=== PATIENT | male | born 1940 | race Two or more races ===

== ENCOUNTER 2018-10-07 05:52 | Emergency (ER) | payer MEDICAID ==
[~2018-10-07] VITALS: Ht 177.8 cm; Wt 97.5 kg
[2018-10-07 06:05] VITALS: BP 129/70
--- NOTE | 2018-10-07 06:11 | NUR ---
AT THE BED SIDE
[2018-10-07] MEDS ORDERED: IBUPROFEN 600 MG TABLET PO ONE ×2 (06:22→06:30)
--- NOTE | 2018-10-07 06:23 | NUR ---
Patient discharged to home in stable condition. Rx and Written and verbal after care instructions given. Patient verbalizes understanding of instruction.
== END 2018-10-07 06:25 | disposition home or self-care (01) ==
LOC: ER 05:52
DX: N61.0 Mastitis without abscess (principal)

== ENCOUNTER 2019-08-07 10:15 | Inpatient (IN) | payer MEDICAID ==
[~2019-08-07] VITALS: Ht 177.8 cm; Wt 98.4 kg
[2019-08-07 10:54] LABS: BASOPHILS # (AUTO) 0.1 /CMM (0.0-0.2); BASOPHILS % (AUTO) 0.6 % (0.0-2.0); EOSINOPHILS % (AUTO) 0.5 % (0.0-6.0); HEMATOCRIT 42 % (39-51); HEMOGLOBIN 13.7 g/dL (13.5-17.5); LYMPHOCYTES # (AUTO) 1.2 /CMM (0.8-4.8); LYMPHOCYTES % (AUTO) 11.3 % (20.0-44.0); MEAN CORPUSCULAR HGB CONC 32 g/dl (31.0-36.0); MEAN CORPUSCULAR VOLUME 92 fL (80-96); MONOCYTES # (AUTO) 0.8 /CMM (0.1-1.30); MONOCYTES % (AUTO) 7.5 % (2.0-12.0); NEUTROPHILS # (AUTO) 8.2 /CMM (1.8-8.9); NEUTROPHILS % (AUTO) 80.1 % (43.0-81.0); PLATELET COUNT (AUTO) 241 /CMM (150-450); RED BLOOD CELL COUNT(AUTO) 4.59 MIL/uL (4.5-6.0); WHITE BLOOD COUNT (AUTO) 10.2 K/uL (4.3-11.0)
[2019-08-07 10:56] LABS: CALCIUM, SERUM 8.1 mg/dL (8.5-10.1); CARBON DIOXIDE 26 mmol/L (21-32); CHLORIDE 96 mmol/L (98-107); CREATININE 0.9 mg/dL (0.6-1.3); GLUCOSE 184 mg/dL (74-106); POTASSIUM 4.5 mmol/L (3.5-5.1); SODIUM SERUM 130 mmol/L (136-145); UREA NITROGEN, BLOOD 16 mg/dL (7-18)
--- NOTE | 2019-08-07 11:02 | NUR ---
BIB C/O SOB FACIAL SWELLING THAT STARTED YESTERDAY. PT AAOX4, PLACED ON FINANCE EFFECTIVENESS MANAGER, ST. O2 SAT ON RA 56%, PLACED ON HI SAYRA OXYGEN, NON REBREATHER, O2 SAT 95%. PT SEEN & EVAL'D BY DR. BERMAN & RT. PT STS FEELING A LOT BETTER & WILL CONT TO MONITOR.
[2019-08-07 11:08] LABS: ALANINE AMINOTRANSFERASE 24 U/L (12-78); ALBUMIN 3.3 g/dL (3.4-5.0); ALKALINE PHOSPHATASE 97 U/L (46-116); ASPARTATE AMINOTRANSFERASE 16 U/L (15-37); B-TYPE NATRIURETIC PEPTIDE 2566 PG/ML (0-125); BILIRUBIN,TOTAL 0.7 mg/dL (0.2-1.0); TOTAL PROTEIN, SERUM 7.5 g/dL (6.4-8.2)
[2019-08-07] MEDS ORDERED: AMLO5TAB9 PO (11:21)
[2019-08-07] MEDS ORDERED: GABA-532 PO (11:21)
[2019-08-07] MEDS ORDERED: CHOL10002 PO (11:21)
[2019-08-07] MEDS ORDERED: TIOT18CA3 PO (11:21)
[2019-08-07] MEDS ORDERED: METF-441 PO (11:21)
[2019-08-07] MEDS ORDERED: GLIP5TAB13 PO (11:21)
[2019-08-07 11:22] LABS: CREATINE KINASE, TOTAL 99 U/L (39-308); D-DIMER 0.38 mg/L(FEU (0.17-0.50); FERRITIN 89 ng/mL (8-388)
[2019-08-07 11:23] LABS: C-REACTIVE PROTEIN 6.8 mg/dL (0.0-0.9)
--- NOTE | 2019-08-07 12:40 | NUR ---
CALLED [facility], PAGED FLEI ANDERSON DNP
--- NOTE | 2019-08-07 12:46 | NUR ---
URINE SAMPLE COLLECTED AND SENT TO LAB.
[2019-08-07 12:57] LABS: APPEARANCE,URINE Clear (CLEAR); BILIRUBIN,URINE SMALL (NEGATIVE); BLOOD, URINE Moderate Ery/uL (NEGATIVE); COLOR,URINE Yellow (YELLOW); KETONES,URINE Negative (NEGATIVE); LEUKOCYTE ESTERASE ,URINE Negative (NEGATIVE); NITRITE, URINE Negative (NEGATIVE); PH,URINE 5.5 (5.0-8.0); PROTEIN,URINE >=300 mg/dl (NEGATIVE); UGLUCOSE Negative (NEGATIVE)
[2019-08-07 12:59] LABS: BACTERIA,URINE Few /HPF (None Seen); SQUAMOUS EPITHELIAL CELL,UR Few /HPF (None Seen); WBC,URINE 0-2 /HPF (0-3)
[2019-08-07] MEDS ORDERED: FUROSEMIDE 40 MG/4 ML VIAL IV ONE (13:00)
--- NOTE | 2019-08-07 13:09 | NUR ---
REPORT GIVEN TO MARJORIE LA OF TELE UNIT
[2019-08-07] MEDS ORDERED: FUROSEMIDE 40 MG/4 ML VIAL ONE (13:11)
--- NOTE | 2019-08-07 13:22 | NUR ---
BUSINESS EDUCATION PROFESSOR JUSTIN AT BEDSIDE
[2019-08-07] MEDS ORDERED: ONDANSETRON HCL/PF 4 MG/2 ML VIAL IVP PRN (13:30)
[2019-08-07] MEDS ORDERED: ZOLPIDEM TARTRATE 5 MG TABLET PO PRN (13:30)
[2019-08-07] MEDS ORDERED: HYDROCODONE/APAP 5/325MG 1 EACH TABLET PO PRN (13:30)
[2019-08-07] MEDS ORDERED: Z GUARD REMEDY 2 OZ OINT TP PRN (13:30)
[2019-08-07] MEDS ORDERED: DEXTROSE 50%-WATER 50 ML DISP.SYRIN IV PRN (13:30)
[2019-08-07] MEDS ORDERED: ENOXAPARIN SODIUM 40 MG/0.4 ML DISP.SYRIN SQ SCH (13:30)
--- NOTE | 2019-08-07 13:40 | NUR ---
ADMISSION/ GASTON NOTES RECEIVED PT VIA JACKLYN. A/OX4, RESPONSIVE TO ALL STIMULI, ABLE TO MAKE NEEDS KNOWN, HUNGARIAN AND ICELANDIC SPEAKING. ON CONTACT/DROPLET ISOLATION DUE TO R/O COVID19, RESULT PENDING. RESPIRATION EVEN AND NON LABORED WITH NO ACUTE RESPIRATORY DISTRESS, ON O2 AT 5LPM VIA N/C SATING 93%, HOB ELEVATED. ABDOMEN SOFT AND NON DISTENDED WITH ACTIVE BOWEL SOUNDS, CONTINENT, URINAL PROVIDED ON BEDSIDE. PT DENIES PAIN AND DISCOMFORT. SKIN WARM TO TOUCH AND DRY, SKIN INTACT WITH BLE DISCOLORATION AND BILATERAL TOE AMPUTATION, PT REFUSED TO BE CHECKED ON PERINEAL AREA STATED "I HAVE NO WOUNDS", RESPECTED PT AUTONOMY AND INFORM TO LET RN KNOW IF WANTED TO BE CHECKED LATER ON, PT VERBALIZED UNDERSTANDING. ON TELE MONITOR SHOWS CONTROLLED AFIB 84. IV SITE AT RIGHT AC #18, PATENT IN FLUSHING, NO S/SX OF INFILTRATION. MED RECON DONE BY . ON CARDIAC DIET. CALL LIGHT WITHIN REACHED. ALL CONCERNS ATTENDED, BED IN LOW LOCKED POSITION, SRX2 FOR SAFETY. WILL CONTINUE TO MONITOR PATIENT CARE
--- NOTE | 2019-08-07 13:45 | NUR ---
GASTON NOTES PT HAS PRESENCE OF +1 PITTING EDEMA ON BLE. NON PITTING ON BUE. WILL CONTINUE TO MONITOR
--- NOTE | 2019-08-07 13:47 | NUR ---
TRANSFERRED TO TELE UNIT VIA [facility]
[2019-08-07] MEDS: IPRATROPIUM BROMIDE 14 GM INHALER (or 12.9 GM) IH SCH ×2 (15:10→17:06)
[2019-08-07 16:00] VITALS: BP 166/82
[2019-08-07 16:19] VITALS: BP 166/82
[2019-08-07] MEDS: BLOOD SUGAR DIAGNOSTIC 1 EACH STRIP VI SCH ×2 (17:11→21:24)
[2019-08-07] MEDS: *INSULIN REGULAR(HUMULIN R)HUM 100 UNIT/ML VIAL SQ PRN ×2 (17:13→21:31)
--- NOTE | 2019-08-07 17:28 | NUR ---
WORKERS' COMPENSATION HEARINGS OFFICER NOTES MARIN () CAME, BROUGHT PATIENT'S FAMILY SERVICE WORKER, PUZZLE WORKBOOK, PENCIL AND COMB. EXPLAINED TO PT THAT THERE IS A POSSIBILITY FOR TRANSFER OF ROOM AND RISK FOR LOSS VALUABLES. PT IS ALERT OX4 AND STATED HE WILL KEEP AN EYE ON IT, HE NEEDS THE CELLPHONE TO CONTACT THE FAMILY MEMBER. PT VERBALIZED UNDERSTANDING. ADD ON VALUABLES INPUTTED IN INVENTORY.
--- NOTE | 2019-08-07 18:38 | NUR ---
GASTON RN CLOSING NOTES PT A/OX4. RESPIRATION EVEN AND UNLABORED, NOT IN ACUTE RESPIRATORY DISTRESS, O2 AT 5-7 LPM VIA N/C SATING 92-95%, HOB ELEVATED. PRESENCE OF BUE NON PITTING EDEMA AND BLE +1 PITTING EDEMA. ABD SOFT AND NON DISTENDED,NO BM, URINAL 600 CC WITH YELLOW COLOR. SKIN WARM TO TOUCH AND DRY. DENIES PAIN AND DISCOMFORT. IV SITE AT RIGHT AC #18 H/L PATENT IN FLUSHING, SITE HAS NO S/SX OF INFILTRATION. TELE MONITOR SHOWS CONTROLLED AFIB 93. ON CONTACT/DROPLET ISOLATION DUE TO R/O COVID19. BED IN LOCKED POSITION, SR X2 UP FOR SAFETY. ALL CONCERNS ATTENDED. CALL LIGHT WITHIN REACHED. ENDORSED PT CARE TO NEXT SHIFT.
--- NOTE | 2019-08-07 19:30 | NUR ---
GASTON RN NOTES RECEIVED PATIENT IN BED ALERT AOX4, BREATHING NORMAL NO SOB NOTED.RESPIRATION EVEN NON LABORED. CONTINUES ON O2 7L/MIN VIA NC SATURATING. HOB ELEVATED. TELE MONITOR READING CONTROLLED AFIB- 76'S TO 80. IV SITE RAC G# 18 INTACT PATENT FLUSHING WELL. CONTINUES ON CONTACT/DROPLET ISOLATION DUE TO R/O COVID19. SAFETY MEASURES IN PLACE, BED IN LOW AND LOCKED POSITION. SIDE RAILS UP X2. CALL LIGHT WITHIN REACH. WILL CONT TO MONITOR.
[2019-08-07 20:00] VITALS: BP 148/78
[2019-08-08] VITALS (7 sets, daily range): BP systolic 143–158; BP diastolic 77–87
[2019-08-08] MEDS: IPRATROPIUM BROMIDE 14 GM INHALER (or 12.9 GM) IH SCH ×2 (01:03→05:01)
[2019-08-08 06:18] LABS: BASOPHILS % (AUTO) 0.4 % (0.0-2.0); EOSINOPHILS % (AUTO) 0.8 % (0.0-6.0); HEMATOCRIT 40 % (39-51); HEMOGLOBIN 12.9 g/dL (13.5-17.5); LYMPHOCYTES # (AUTO) 1.1 /CMM (0.8-4.8); LYMPHOCYTES % (AUTO) 12.9 % (20.0-44.0); MEAN CORPUSCULAR HGB CONC 32 g/dl (31.0-36.0); MEAN CORPUSCULAR VOLUME 92 fL (80-96); MONOCYTES # (AUTO) 0.8 /CMM (0.1-1.30); MONOCYTES % (AUTO) 10.1 % (2.0-12.0); NEUTROPHILS # (AUTO) 6.3 /CMM (1.8-8.9); NEUTROPHILS % (AUTO) 75.8 % (43.0-81.0); PLATELET COUNT (AUTO) 241 /CMM (150-450); RED BLOOD CELL COUNT(AUTO) 4.36 MIL/uL (4.5-6.0); WHITE BLOOD COUNT (AUTO) 8.3 K/uL (4.3-11.0)
[2019-08-08 06:31] LABS: THYROID STIMULATING HORMONE 1.19 uIU/mL (0.358-3.74)
[2019-08-08 06:36] LABS: ALBUMIN 3.1 g/dL (3.4-5.0); BILIRUBIN,TOTAL 0.5 mg/dL (0.2-1.0); CREATININE 0.9 mg/dL (0.6-1.3); MAGNESIUM 1.9 mg/dL (1.8-2.4); PHOSPHORUS 3.6 mg/dL (2.5-4.9); POTASSIUM 4.6 mmol/L (3.5-5.1); TOTAL PROTEIN, SERUM 7.2 g/dL (6.4-8.2)
--- NOTE | 2019-08-08 06:39 | NUR ---
GASTON RN NOTES PATIENT RESTED WELL NO S/S OF ACUTE DISTRESS NOTED. DENIES ANY PAIN OR DISCOMFORT. HOB ELEVATED. TELE MONITOR READING CONTROLLED A-FIB 95. ON OXYGEN SATURATING BETWEEN 95-97%. ABD SOFT AND NON DISTENDED. IV SITES INTACT PATENT FLUSHING WELL. ISOLATION PRECAUTIONS MAINTAINED. SAFETY MEASURES IN PLACE, BED IN LOW AND LOCKED POSITION. SIDE RAILS UP X2. CALL LIGHT WITHIN REACH. WILL ENDORSE TO AM NURSE FOR DIONNE.
--- NOTE | 2019-08-08 07:00 | NUR ---
GASTON RN NOTES RECEIVED PATIENT ON BED ALERT AOX4, ON 6L O2 N/C , ON TELE A.FIB HR IN 80'S , NO DISTRESS NOTED, IV SITE R AC G# 18 INTACT PATENT FLUSHING WELL. CONTINUES ON CONTACT/DROPLET ISOLATION DUE TO R/O COVID19. SAFETY MEASURES IN PLACE, BED IN LOW AND LOCKED POSITION. SIDE RAILS UP X3. CALL LIGHT WITHIN EASY REACH. WILL CONT TO MONITOR.
[2019-08-08] MEDS: BLOOD SUGAR DIAGNOSTIC 1 EACH STRIP VI SCH ×4 (08:22→21:29)
[2019-08-08] MEDS: *INSULIN REGULAR(HUMULIN R)HUM 100 UNIT/ML VIAL SQ PRN ×2 (08:22→21:31)
[2019-08-08] MEDS: AMLODIPINE BESYLATE 5 MG TABLET PO SCH (08:25)
[2019-08-08] MEDS: ENOXAPARIN SODIUM 40 MG/0.4 ML DISP.SYRIN SQ SCH (08:26)
[2019-08-08 08:57] LABS: ABG BASE EXCESS -0.8 mmol/L; ABG OXYGEN SATURATION 91.4 % (92.0-98.5); ABG PCO2 67.2 mmHg (35.0-45.0); ABG PO2 68.9 mmHg (75.0-100.0); COHb 1.4 % (0.5-1.5); O2Hb 90.1 % (94.0-97.0); VENT MODE, BG NC 5L
[2019-08-08] MEDS: FUROSEMIDE 40 MG/4 ML VIAL IV SCH ×4 (09:10→16:25)
[2019-08-08 09:30] LABS: IRON, SERUM 26 ug/dl (50-175); TOTAL IRON BINDING CAPACITY 305 ug/dl (250-450)
[2019-08-08 09:43] LABS: FERRITIN 94 ng/mL (8-388)
[2019-08-08] MEDS ORDERED: methylPREDNISolone SOD SUCC 125 MG/2ML VIAL IV ONE (10:00)
[2019-08-08] MEDS ORDERED: IPRATROPIUM/ALBUTEROL INHALER IH SCH (12:00)
[2019-08-08 12:26] LABS: OSMOLALITY,URINE 394 mOS/kg (340-1090)
[2019-08-08 12:27] LABS: URINE SODIUM, RANDOM 60 mmol/l (40-220)
[2019-08-08] MEDS: INSULIN REGULAR, HUMAN 100 UNIT/ML 3 ML VIAL SQ PRN ×2 (12:59→17:41)
--- NOTE | 2019-08-08 13:00 | NUR ---
RN NOTES DAILY LASIX HELD PER DR TOVAR ORDER .
--- NOTE | 2019-08-08 13:39 | NUR ---
RN NOTES DR CHEEMA NOTIFED REGARDING ABG RESULTS , PT IS A/Ox4, NO SIGNIFICANT CHANGES NOTED , ABG ORDERED FOR [address] CHEEMA ORDER, CONTINUE TO MONITOR
[2019-08-08 15:48] LABS: ABG OXYGEN SATURATION 95.7 % (92.0-98.5); ABG PCO2 59.5 mmHg (35.0-45.0); ABG PH 7.302 (7.350-7.450); ABG PO2 81.6 mmHg (75.0-100.0); AaDO2 135.2 mmHg; COHb 1.6 % (0.5-1.5); MetHb 0.2 % (0.0-1.5); SITE, ABG Right Radial; VENT MODE, BG NC 5 L
--- NOTE | 2019-08-08 16:00 | NUR ---
RN NOTES DR CHEEMA NOTIFIED REGARDING ABG RESULS , PT STATED FEELS BETTER , PT IS A/Ox4, CONTINUE TO MONITOR , ABG IN AM PER DR CHEEMA ORDER .
--- NOTE | 2019-08-08 18:21 | NUR ---
RN NOTES PT EATING DINNER , ON 6 L O2 , O2 SAT WNL , STATED FEELS BETTER , SR UP x3, CALL LIGHT WITHIN EASY REACH, BED LOCKED AND IN LOWEST POSITION, WILL ENDORSE TO SALES SERVICE TECHNICIAN NURSE FOR CONTINUITY OF CARE.
[2019-08-08] MEDS: IPRATROPIUM/ALBUTEROL INHALER IH SCH (20:13)
[2019-08-08] MEDS ORDERED: NITROGLYCERIN 0.4 MG/TAB BOTTLE SL PRN (22:00)
--- NOTE | 2019-08-08 22:00 | NUR ---
patient complaining of chest pain on a scale of 8 peeling pressure. contacted pest control supervisor Andonian. ORDERS RECEIVED FOR STAT TROPONIN BLOOD DRAW AND NITRO SL 0.4MG. WILL CONTINUE TO MONITOR.
--- NOTE | 2019-08-08 23:04 | NUR ---
TELE/RN OPENING RECEIVED PATIENT A/OX4 BERMUDIAN SPEAKER WITH CZECH UNDERSTANDING. PATIENT SHOWS NO SIGN OF ANY DISTRESS OR ANY SOB. ON 6L OD 02 ON NASAL CANNULA SATURATING AT 92%. UNLABORED BREATHING EVEN CHEST RISE. IV ACCESS RAC #18 PATENT AND FLUSH ON S/L. EXTREMITIES UPPER AND LOWER WITH MILD TO NO WEAKNESS. URINAL AT BEDSIDE. PLACED COMMODE AT BEDSIDE WITH BED ALARM ON. PATIENT COMFORTABLY IN BED. ALL SAFETY PRECAUTIONS APPLIED. WILL CONTINUE TO MONITOR PATIENT THROUGHOUT SHIFT.
[2019-08-09] VITALS (7 sets, daily range): BP systolic 138–157; BP diastolic 70–106
--- NOTE | 2019-08-09 | NUR ---
PAGED HELMINTHOLOGIST HOSPITALIST DR. ANN REGARDING NEGATIVE COVID SWAB RESULT, ALSO MADE AWARE PER PROTOCOL WE NEED TO TRANSFER PATIENTS TO CLEAN/DIFFERENT UNIT, ORDERED TO HOLD TRANSFERS UNTIL TOMORROW MORNING. ROBOTIC TECHNICIAN MADE AWARE. WILL ATTEND TO ORDERS.
[2019-08-09] MEDS: IPRATROPIUM/ALBUTEROL INHALER IH SCH ×2 (01:44→08:41)
--- NOTE | 2019-08-09 06:48 | NUR ---
TD/CLOSING PATIENT IN BED WITH NO SIGN OF ANY DISTRESS. NO COMPLAINTS ON ANY SOB. TITRATED PATIENTS O2 FROM 6L TO 4L SATURATING AT 96% ON NC. PATIENT ON MONITOR SHOWING CONTROLLED AFIB WITH HR AT 85. IV ACCESS PATENT AND NO SIGN OF INFILTRATION. URINAL AND COMMODE AT BEDSIDE. ADVISED PATIENT TO NOTIFY RN OR BEAUTY SALES ADVISOR IF NEEDING TO USE COMMODE. PATIENT DID NOT WANT BED LINENS CHANGED. ALL SAFETY PRECAUTIONS APPLIED. WILL ENDORSE TO MORNING SHIFT NURSE FOR DIONNE.
[2019-08-09 06:54] LABS: BASOPHILS % (AUTO) 0.1 % (0.0-2.0); HEMATOCRIT 40 % (39-51); HEMOGLOBIN 13.1 g/dL (13.5-17.5); LYMPHOCYTES # (AUTO) 0.8 /CMM (0.8-4.8); LYMPHOCYTES % (AUTO) 8.8 % (20.0-44.0); MEAN CORPUSCULAR HGB CONC 33 g/dl (31.0-36.0); MEAN CORPUSCULAR VOLUME 92 fL (80-96); MONOCYTES # (AUTO) 0.8 /CMM (0.1-1.30); MONOCYTES % (AUTO) 9.8 % (2.0-12.0); NEUTROPHILS % (AUTO) 81.3 % (43.0-81.0); PLATELET COUNT (AUTO) 254 /CMM (150-450); RED BLOOD CELL COUNT(AUTO) 4.38 MIL/uL (4.5-6.0); WHITE BLOOD COUNT (AUTO) 8.6 K/uL (4.3-11.0)
--- NOTE | 2019-08-09 07:05 | NUR ---
RN NOTES RECEIVED PATIENT A/OX4 TOGOLESE SPEAKER WITH BOLIVIAN UNDERSTANDING. ON 4L O2 N/C , NO DISTRESS NOTED, O2 SAT WNL, ON TELE A.FIB, HR IN 90'S , IV ACCESS R AC #18 IV SITE CLEAN, DRY AND INTACT , PT IS ABLE TO USE URINAL AT BEDSIDE. SR UP x3, CALL LIGHT WITHIN EASY REACH, BED LOCKED AND IN LOWEST POSITION, ALL SAFETY PRECAUTIONS APPLIED. WILL CONTINUE TO MONITOR .
[2019-08-09 07:07] LABS: ALBUMIN 2.8 g/dL (3.4-5.0); BILIRUBIN,TOTAL 0.3 mg/dL (0.2-1.0); CALCIUM, SERUM 8.4 mg/dL (8.5-10.1); MAGNESIUM 1.9 mg/dL (1.8-2.4); PHOSPHORUS 3.7 mg/dL (2.5-4.9); POTASSIUM 5.1 mmol/L (3.5-5.1); TOTAL PROTEIN, SERUM 6.9 g/dL (6.4-8.2)
[2019-08-09 07:20] LABS: THYROID STIMULATING HORMONE 0.96 uIU/mL (0.358-3.74)
[2019-08-09 08:11] LABS: *SPE A/G RATIO 0.9 (0.7-1.7); *SPE ALBUMIN 2.9 g/dL (2.9-4.4); *SPE ALPHA-1-GLOBULIN 0.3 g/dL (0.0-0.4); *SPE ALPHA-2-GLOBULIN 0.8 g/dL (0.4-1.0); *SPE BETA GLOBULIN 1.1 g/dL (0.7-1.3); *SPE GLOBULIN, TOTAL 3.3 g/dL (2.2-3.9); *SPE M-SPIKE Not Observed g/dL (Not Observed); *SPEGAMMA GLOBULIN 1.1 g/dL (0.4-1.8)
[2019-08-09] MEDS: FUROSEMIDE 40 MG/4 ML VIAL IV SCH ×4 (08:28→20:52)
[2019-08-09] MEDS: AMLODIPINE BESYLATE 5 MG TABLET PO SCH (08:28)
[2019-08-09] MEDS: *INSULIN REGULAR(HUMULIN R)HUM 100 UNIT/ML VIAL SQ PRN ×2 (08:29→21:12)
[2019-08-09] MEDS: BLOOD SUGAR DIAGNOSTIC 1 EACH STRIP VI SCH ×4 (08:30→21:11)
[2019-08-09] MEDS: ENOXAPARIN SODIUM 40 MG/0.4 ML DISP.SYRIN SQ SCH (08:30)
--- NOTE | 2019-08-09 08:45 | NUR ---
RN NOTES PT TRANSFERRED TO 3W PER MD ORDER , IN STABLE CONDITION, REPORT GIVEN TO SANDRA LA FOR CONTINUITY OF CARE.
[2019-08-09] MEDS: ALBUTEROL HALF STRENGTH 1.25 MG/3 ML VIAL.NEB NEB SCH ×5 (09:30→23:57)
[2019-08-09] MEDS: IPRATROPIUM NEB FS 0.5 MG/2.5 ML AMPUL.NEB NEB SCH ×5 (09:30→23:56)
--- NOTE | 2019-08-09 09:30 | NUR ---
RN MS NOTES RECEIVED PT FROM SOURAV LA VIA BED, PT IS AWAKE, ALERT AND ORIENTED, NOT IN DISTRESS, DENIES PAIN, ROOM SET UP ORIENTATION PROVIDED, VERBALIZED UNDERSTANDING, KEPT COMFORTABLE IN BED.
[2019-08-09 09:46] LABS: ABG BASE EXCESS 5.4 mmol/L; ABG OXYGEN SATURATION 94.9 % (92.0-98.5); ABG PCO2 60.2 mmHg (35.0-45.0); ABG PH 7.354 (7.350-7.450); ABG PO2 76.6 mmHg (75.0-100.0); AaDO2 81.1 mmHg; COHb 0.9 % (0.5-1.5); MetHb 0.2 % (0.0-1.5); O2Hb 93.9 % (94.0-97.0); SITE, ABG Left Radial; VENT MODE, BG Nasal Cannula
[2019-08-09] MEDS: INSULIN REGULAR, HUMAN 100 UNIT/ML 3 ML VIAL SQ PRN (12:12)
[2019-08-09] MEDS: ACETAMINOPHEN 325 MG TABLET PO PRN (18:15)
--- NOTE | 2019-08-09 18:35 | NUR ---
RN MS NOTES PATIENT IN BED AWAKE, ALERT, ORIENTED. PATIENT COMPLAINS OF GENERALIZED BODY PAIN. ADMINISTERED PAIN MEDICATION PER ORDER. PATIENT SHOWS NO SIGNS OF SHORTNESS OF BREATH. TOLERATES CURRENT DIET. PM MEDS GIVEN ORDERED. NEEDS ATTENDED.
--- NOTE | 2019-08-09 19:05 | NUR ---
RN OPENING NOTES Received patient asleep on bed, on RA, no SOB/respiratory distress noted. No s/sx of discomfort noted at this time. On fall and aspiration precautions. Will continue to monitor accordingly.
[2019-08-10] MEDS: ALBUTEROL HALF STRENGTH 1.25 MG/3 ML VIAL.NEB NEB SCH ×5 (03:22→19:53)
[2019-08-10] MEDS: IPRATROPIUM NEB FS 0.5 MG/2.5 ML AMPUL.NEB NEB SCH ×5 (03:22→19:53)
--- NOTE | 2019-08-10 06:35 | NUR ---
RN CLOSING NOTES Patient asleep, easily awaken. On RA, no SOB/respiratory distress noted. Patient denies any discomfort at this time. Able to void with urinal, with total urine output of 3000ml within the shift. Due meds given as ordered. All nursing needs attended. Kept on bed clean, dry and comfortable. On fall and aspiration precautions. Endorsed.
[2019-08-10] MEDS: BLOOD SUGAR DIAGNOSTIC 1 EACH STRIP VI SCH ×4 (06:44→21:42)
[2019-08-10 07:00] LABS: BASOPHILS # (AUTO) 0.1 /CMM (0.0-0.2); EOSINOPHILS % (AUTO) 2.1 % (0.0-6.0); HEMATOCRIT 44 % (39-51); LYMPHOCYTES # (AUTO) 1.4 /CMM (0.8-4.8); MEAN CORPUSCULAR HGB CONC 32 g/dl (31.0-36.0); MEAN CORPUSCULAR VOLUME 91 fL (80-96); MONOCYTES # (AUTO) 0.9 /CMM (0.1-1.30); MONOCYTES % (AUTO) 10.7 % (2.0-12.0); NEUTROPHILS # (AUTO) 5.5 /CMM (1.8-8.9); NEUTROPHILS % (AUTO) 69.2 % (43.0-81.0); PLATELET COUNT (AUTO) 261 /CMM (150-450); RED BLOOD CELL COUNT(AUTO) 4.78 MIL/uL (4.5-6.0); WHITE BLOOD COUNT (AUTO) 7.9 K/uL (4.3-11.0)
--- NOTE | 2019-08-10 07:30 | NUR ---
RN MS NOTES PT IN BED, AWAKE, ALERT AND ORIENTED, NO COMPLAINT OF PAIN OR ANY DISCOMFORT, RECEIVING HIS BREATHING TREATMENT, CALL LIGHT WITHIN REACH, NEEDS ATTENDED.
[2019-08-10 07:38] LABS: ALBUMIN 2.9 g/dL (3.4-5.0); BILIRUBIN,TOTAL 0.4 mg/dL (0.2-1.0); CALCIUM, SERUM 8.6 mg/dL (8.5-10.1); CREATININE 0.9 mg/dL (0.6-1.3); MAGNESIUM 1.6 mg/dL (1.8-2.4); PHOSPHORUS 3.6 mg/dL (2.5-4.9); POTASSIUM 4.3 mmol/L (3.5-5.1); TOTAL PROTEIN, SERUM 6.9 g/dL (6.4-8.2)
[2019-08-10 08:00] VITALS: BP 140/77
[2019-08-10] MEDS ORDERED: acetaZOLAMIDE SODIUM 500 MG/VIAL VIAL IV ONE (08:30)
[2019-08-10] MEDS: AMLODIPINE BESYLATE 5 MG TABLET PO SCH (09:06)
[2019-08-10] MEDS: ENOXAPARIN SODIUM 40 MG/0.4 ML DISP.SYRIN SQ SCH (09:13)
[2019-08-10] MEDS: Magnesium 1GM/D5W 100ML PREMIX 100 ML IV SCH ×2 (11:44→13:11)
[2019-08-10] MEDS: INSULIN REGULAR, HUMAN 100 UNIT/ML 3 ML VIAL SQ PRN ×2 (11:46→17:21)
--- NOTE | 2019-08-10 13:25 | NUR ---
RN MS NOTES PT IN BED, AWAKE, ALERT AND ORIENTED, DENIES PAIN, NOT IN DISTRESS, CALL LIGHT WITHIN REACH, SEEN BY DR. MAMI MD AWARE OF PT'S ELEVATED CO2, PT EATING LUNCH, TOLERATES CURRENT DIET, NEEDS ATTENDED.
[2019-08-10] MEDS: POLYETHYLENE GLYCOL 3350 17 GM POWD.PACK PO PRN (15:06)
[2019-08-10] MEDS: DOCUSATE SODIUM 100 MG CAPSULE PO SCH (17:13)
[2019-08-10 18:27] VITALS: BP 129/69
--- NOTE | 2019-08-10 18:51 | NUR ---
RN MS NOTES PT IN BED, ASLEEP, EASY TO AROUSE, DENIES PAIN, NOT IN DISTRESS, CALL LIGHT WITHIN REACH, SEEN BY DR. BOLAÑOS TODAY, TOLERATES CURRENT DIET, PT BS CHECKED, 135, PT REFUSED INSULIN, NEEDS ATTENDED.
--- NOTE | 2019-08-10 19:05 | NUR ---
RN OPENING NOTES Received patient awake on bed on O2 via NC @ 4LPM, saturating well. Patient noted with dyspnea on exertion. Discussed with patient the POC for the night, patient verbalized understanding. No discomfort noted at this time. Kept on bed clean, dry and comfortable. On fall and aspiration precautions. Will continue to monitor accordingly.
[2019-08-10 20:00] VITALS: BP 154/73
[2019-08-10] MEDS: *INSULIN REGULAR(HUMULIN R)HUM 100 UNIT/ML VIAL SQ PRN (21:59)
[2019-08-11] MEDS: IPRATROPIUM NEB FS 0.5 MG/2.5 ML AMPUL.NEB NEB SCH ×7 (00:08→23:12)
[2019-08-11] MEDS: ALBUTEROL HALF STRENGTH 1.25 MG/3 ML VIAL.NEB NEB SCH ×7 (00:09→23:12)
[2019-08-11 06:11] LABS: BASOPHILS % (AUTO) 0.5 % (0.0-2.0); EOSINOPHILS % (AUTO) 3.3 % (0.0-6.0); HEMATOCRIT 44 % (39-51); HEMOGLOBIN 14.2 g/dL (13.5-17.5); LYMPHOCYTES # (AUTO) 1.2 /CMM (0.8-4.8); LYMPHOCYTES % (AUTO) 15.2 % (20.0-44.0); MEAN CORPUSCULAR HGB CONC 32 g/dl (31.0-36.0); MEAN CORPUSCULAR VOLUME 91 fL (80-96); MONOCYTES # (AUTO) 0.9 /CMM (0.1-1.30); MONOCYTES % (AUTO) 11.7 % (2.0-12.0); NEUTROPHILS # (AUTO) 5.5 /CMM (1.8-8.9); NEUTROPHILS % (AUTO) 69.3 % (43.0-81.0); PLATELET COUNT (AUTO) 275 /CMM (150-450); RED BLOOD CELL COUNT(AUTO) 4.83 MIL/uL (4.5-6.0)
[2019-08-11 06:28] LABS: ALBUMIN 2.8 g/dL (3.4-5.0); BILIRUBIN,TOTAL 0.5 mg/dL (0.2-1.0); CALCIUM, SERUM 8.9 mg/dL (8.5-10.1); CREATININE 0.9 mg/dL (0.6-1.3); POTASSIUM 4.7 mmol/L (3.5-5.1); TOTAL PROTEIN, SERUM 6.8 g/dL (6.4-8.2)
--- NOTE | 2019-08-11 06:51 | NUR ---
RN CLOSING NOTES Patient asleep on bed, on Fowlers position. On O2 inhalation via NC @ 4LPM, saturating well, no SOB/respiratory distress noted. Patient denies any discomfort at this time. All nursing needs attended. Due meds given as ordered. Afebrile the whole shift, no new unusalities noted. Kept on bed clean, dry and comfortable. Endorsed.
[2019-08-11 08:00] VITALS: BP_SYST 137; BP_SYST 161; BP_DIAS 76; BP_DIAS 91
--- NOTE | 2019-08-11 08:00 | NUR ---
RN OPENING NOTES Received patient awake on bed on O2 via NC @ 4LPM, saturating well. Patient has no dyspnea on exertion. Adjusted O2 at 2l/min with O2 sat of 96-98%. Denies any SOB noted at this time. We will remove O2 and monitor O2 sat and respiratory status. Kept on bed clean, dry and comfortable. Ambulates ad elsie with BRP with steady gait and uses urinal occasionally. Will continue to monitor accordingly.
[2019-08-11] MEDS: INSULIN REGULAR, HUMAN 100 UNIT/ML 3 ML VIAL SQ PRN ×2 (08:33→11:45)
[2019-08-11] MEDS: BLOOD SUGAR DIAGNOSTIC 1 EACH STRIP VI SCH ×4 (08:34→21:46)
[2019-08-11] MEDS: AMLODIPINE BESYLATE 5 MG TABLET PO SCH (09:17)
[2019-08-11] MEDS: DOCUSATE SODIUM 100 MG CAPSULE PO SCH ×2 (09:19→17:50)
[2019-08-11] MEDS: ENOXAPARIN SODIUM 40 MG/0.4 ML DISP.SYRIN SQ SCH (09:19)
--- NOTE | 2019-08-11 10:01 | NUR ---
CHECKED PT'S O2 SAT AFTER PLACING HIM IN O2 AT 2L/MIN WITH O2 SAT 98%.WILL REMOVE O2 SAT WITHOUT OXYGEN. Addendum: 08/11/19 at 1005 by MARIN KAUFFMAN RN WILL RECHECK O2 SAT WITHOUT OXYGEN
[2019-08-11] MEDS: FUROSEMIDE 40 MG/4 ML VIAL IV SCH ×3 (10:10→18:03)
[2019-08-11] MEDS: POLYETHYLENE GLYCOL 3350 17 GM POWD.PACK PO PRN (10:10)
--- NOTE | 2019-08-11 15:00 | NUR ---
Pt was able to shave himself by the sink on room air. Denies SOB. Encouraged to ambulate to pass gas due to c/o constipation for 4 daYS. Will monitor.
--- NOTE | 2019-08-11 15:10 | NUR ---
PLACED PT ON PREVIOUS ORDER OF 4 LPM VIA N/C DUE TO LOW SP02 90% PATIENT SP02 UP TO 96% AFTER TX AND BEING PLACED ON N/C. PT NOT COMPLAINING OF SOB. WILL CONTINUE TO MONITOR.
--- NOTE | 2019-08-11 15:20 | NUR ---
R.T. STATED THAT PT DESATURATES TO LOW 81% ON ROOM AIR.PLACED PT BACK TO 4L/MIN VIA NC AND WE WILL MAKE ADJUSTMENTS TO 2L/MIN PER PT'S TOLERANCE.WILL MONITOR.
[2019-08-11 16:00] VITALS: BP 130/69
--- NOTE | 2019-08-11 16:00 | NUR ---
Pt c/o constipation for 4 days.Encouraged to ambulate along the hallway. Gave Miralax PRN and pt still c/o uneasy for not moving his bowels.Notified Dr Palomo with orders for Mag citrate and carried out.
[2019-08-11] MEDS ORDERED: MAGNESIUM CITRATE 296 ML BOTTLE PO ONE (17:30)
--- NOTE | 2019-08-11 18:03 | NUR ---
Pt is on room air for an hour saying his nostrils are getting itchy so he removed his O2 at 2l/min via NC.O2 sat 87%-the lowest and 97% the highest. Denies SOB or light headedness. Instructed the use of O2 cannula when needed. Call light placed within reach.
[2019-08-11 19:30] VITALS: BP 137/77
--- NOTE | 2019-08-11 19:35 | NUR ---
MS RN NOTES PATIENT SITTING ON EDGE OF BED. ALERT AND ORIENTED X 4. BREATHING EVEN AND UNLABORED ON 2L NC. SHOWS NO SIGNS OF ACUTE RESPIRATORY DISTRESS, NO ACUTE PAIN. IV ON RAC 18G ITS CLEAN DRY AND INTACT. SHOWS NO SIGNS OF INFILTRATION, NO REDNESS. SAFETY PRECAUTIONS IN PLACE. BED IN LOWEST POSITION, LOCKED, AND CALL LIGHT KEPT WITHIN REACH. WILL CONTINUE TO MONITOR.
--- NOTE | 2019-08-11 19:39 | NUR ---
PT RESTING IN BED RECEIVING BREATHING TX AT THIS TIME.PT DENIES ANY SOB OR DISTRESS EARLIER WHILE SITTING ON THE EDGE OF THE BED RESTING IN BETWEEN WALKING TO THE TOILET AND AROUND THE ROOM. CALL LIGHT PLACED WITHIN REACH.
[2019-08-11 20:00] VITALS: BP 137/77
[2019-08-11] MEDS: *INSULIN REGULAR(HUMULIN R)HUM 100 UNIT/ML VIAL SQ PRN (21:49)
[2019-08-11] MEDS: ACETAMINOPHEN 325 MG TABLET PO PRN (21:56)
--- NOTE | 2019-08-11 21:56 | NUR ---
MS RN NOTES PATIENT COMPLAINING OF PAIN, REQUEST TYLENOL. GIVEN PRN TYLENOL AT [phone]
[2019-08-12] MEDS: IPRATROPIUM NEB FS 0.5 MG/2.5 ML AMPUL.NEB NEB SCH ×6 (03:55→23:29)
[2019-08-12] MEDS: ALBUTEROL HALF STRENGTH 1.25 MG/3 ML VIAL.NEB NEB SCH ×6 (03:56→23:29)
[2019-08-12] MEDS: BLOOD SUGAR DIAGNOSTIC 1 EACH STRIP VI SCH ×4 (06:31→22:02)
[2019-08-12] MEDS: *INSULIN REGULAR(HUMULIN R)HUM 100 UNIT/ML VIAL SQ PRN ×2 (06:33→22:05)
--- NOTE | 2019-08-12 06:40 | NUR ---
MS RN NOTES PATIENT IN BED, ASLEEP. ALERT AND ORIENTED X 4. BREATHING EVEN AND UNLABORED ON 2L NC. SHOWS NO SIGNS OF ACUTE RESPIRATORY DISTRESS, NO ACUTE PAIN. IV ON RAC 18G ITS CLEAN DRY AND INTACT. SHOWS NO SIGNS OF INFILTRATION, NO REDNESS. ALL DUE MEDICATIONS GIVEN. SAFETY PRECAUTIONS IN PLACE. BED IN LOWEST POSITION, LOCKED, AND CALL LIGHT KEPT WITHIN REACH. WILL ENDORSE TO ONCOMING NURSE.
[2019-08-12 07:53] LABS: BASOPHILS # (AUTO) 0.1 /CMM (0.0-0.2); BASOPHILS % (AUTO) 0.8 % (0.0-2.0); EOSINOPHILS % (AUTO) 4.2 % (0.0-6.0); HEMATOCRIT 45 % (39-51); HEMOGLOBIN 14.3 g/dL (13.5-17.5); LYMPHOCYTES # (AUTO) 1.4 /CMM (0.8-4.8); LYMPHOCYTES % (AUTO) 20.9 % (20.0-44.0); MEAN CORPUSCULAR HGB CONC 32 g/dl (31.0-36.0); MEAN CORPUSCULAR VOLUME 91 fL (80-96); MONOCYTES # (AUTO) 0.8 /CMM (0.1-1.30); MONOCYTES % (AUTO) 11.9 % (2.0-12.0); NEUTROPHILS # (AUTO) 4.1 /CMM (1.8-8.9); NEUTROPHILS % (AUTO) 62.2 % (43.0-81.0); PLATELET COUNT (AUTO) 270 /CMM (150-450); WHITE BLOOD COUNT (AUTO) 6.6 K/uL (4.3-11.0)
[2019-08-12 08:00] VITALS: BP 142/82
--- NOTE | 2019-08-12 08:00 | NUR ---
RN OPENING NOTES Received patient awake on bed on O2 via NC @ 2LPM, saturating well. Patient has no dyspnea on exertion. Adjusted O2 at 2l/min with O2 sat of 96-99%. Denies any SOB noted at this time. We will remove O2 and monitor O2 sat and respiratory status. Kept on bed clean, dry and comfortable. Ambulates ad elsie with BRP with steady gait and uses urinal occasionally. Will continue to monitor accordingly.
[2019-08-12 09:00] LABS: ALBUMIN 2.9 g/dL (3.4-5.0); BILIRUBIN,TOTAL 0.5 mg/dL (0.2-1.0); CALCIUM, SERUM 8.7 mg/dL (8.5-10.1); CREATININE 0.9 mg/dL (0.6-1.3); MAGNESIUM 2.3 mg/dL (1.8-2.4); PHOSPHORUS 3.7 mg/dL (2.5-4.9); POTASSIUM 5.1 mmol/L (3.5-5.1)
[2019-08-12] MEDS: DOCUSATE SODIUM 100 MG CAPSULE PO SCH ×2 (09:58→17:00)
[2019-08-12] MEDS: POTASSIUM CHLORIDE 20 MEQ TAB.PRT.SR PO SCH (09:58)
[2019-08-12] MEDS: FUROSEMIDE 40 MG TABLET PO SCH (09:58)
[2019-08-12] MEDS: AMLODIPINE BESYLATE 5 MG TABLET PO SCH (09:58)
[2019-08-12] MEDS: ENOXAPARIN SODIUM 40 MG/0.4 ML DISP.SYRIN SQ SCH (10:00)
[2019-08-12] MEDS: INSULIN REGULAR, HUMAN 100 UNIT/ML 3 ML VIAL SQ PRN ×2 (12:35→17:20)
[2019-08-12 16:00] VITALS: BP 113/65
--- NOTE | 2019-08-12 16:00 | NUR ---
PT JUST HAD BREATHING TX DONE.TRANSFERRED PT TO MS 2 ROOM 203 WITH STABLE V/S-WITH MEDS AND BELONGINGS.GAVE REPORT TO ABHINAV VASQUEZ. DENIES PAIN OR DISTRESS.
--- NOTE | 2019-08-12 16:10 | NUR ---
RN NOTE RECEIVED PATIENT FROM [facility] Patient transferred to room 203. Received bedside report from Minoo Garcia RN. Patient is A/O x4, showing no signs of acute distress or SOB, BP 113/65 HR 85 RR 20 T 98.2 O2 95% on 2L NC. IV line in the RAC #18h is clean and intact s/l. Bed is in lowest position, side rails x3 in upright position, call light is within reach, fall safety and aspiration precautions enforced. Will continue with plan of care.
--- NOTE | 2019-08-12 17:24 | NUR ---
RN NOTE Patient's blood sugar is 47. Dextrose given IVP. Russell juice given. Patient remains A/O x4, responsive, diaphoretic, vital signs stable. Will continue to monitor.
--- NOTE | 2019-08-12 17:35 | NUR ---
RN NOTE rechecked BS 129. Patient is sitting up in bed eating dinner, alert. Will continue to monitor.
--- NOTE | 2019-08-12 18:05 | NUR ---
RN NOTE Blood sugar re-checked, BS 148. made aware, no new orders at this time. Patient is resting in bed, in no acute distress, vital signs stable. Addendum: 08/12/19 at 1925 by JASWANT JO RN Per , accu-check every 4 hours.
--- NOTE | 2019-08-12 19:00 | NUR ---
Recieved patient in the bed. When name spoken opened his eyes smiled .. He stated he is so sleepy today. call light withen his reach and bed alarm on, instructed him not to get OOB w/o the nurse at his side. O2 on at 2l n/c no noted SPB
--- NOTE | 2019-08-12 19:25 | NUR ---
RN CLOSING NOTE Patient is resting in bed, A/O x4, showing no signs of acute distress or SOB, saturating >95% on 2L NC. IV line in the RAC #18h is clean and intact s/l. All patient needs met, all due medications given, patient kept clean and dry throughout shift. Bed is in lowest position, side rails x3 in upright position, call light is within reach, fall safety and aspiration precautions enforced. Will endorse to translational specialist for DIONNE.
[2019-08-12 20:01] VITALS: BP 159/82
[2019-08-12 20:21] VITALS: BP 159/82
[2019-08-12] MEDS ORDERED: BLOOD SUGAR DIAGNOSTIC 1 EACH STRIP VI SCH (22:00)
[2019-08-13] MEDS: ALBUTEROL HALF STRENGTH 1.25 MG/3 ML VIAL.NEB NEB SCH ×4 (03:30→16:58)
[2019-08-13] MEDS: IPRATROPIUM NEB FS 0.5 MG/2.5 ML AMPUL.NEB NEB SCH ×4 (03:30→16:58)
[2019-08-13] MEDS: BLOOD SUGAR DIAGNOSTIC 1 EACH STRIP VI SCH ×3 (06:35→16:32)
[2019-08-13] MEDS: INSULIN REGULAR, HUMAN 100 UNIT/ML 3 ML VIAL SQ PRN ×3 (06:42→16:40)
[2019-08-13 06:54] LABS: BASOPHILS # (AUTO) 0.1 /CMM (0.0-0.2); BASOPHILS % (AUTO) 0.7 % (0.0-2.0); EOSINOPHILS % (AUTO) 4.1 % (0.0-6.0); HEMATOCRIT 45 % (39-51); HEMOGLOBIN 14.3 g/dL (13.5-17.5); LYMPHOCYTES # (AUTO) 1.3 /CMM (0.8-4.8); LYMPHOCYTES % (AUTO) 17.8 % (20.0-44.0); MEAN CORPUSCULAR HGB CONC 32 g/dl (31.0-36.0); MEAN CORPUSCULAR VOLUME 91 fL (80-96); MONOCYTES # (AUTO) 0.7 /CMM (0.1-1.30); NEUTROPHILS # (AUTO) 5.1 /CMM (1.8-8.9); NEUTROPHILS % (AUTO) 68.4 % (43.0-81.0); PLATELET COUNT (AUTO) 287 /CMM (150-450); RED BLOOD CELL COUNT(AUTO) 4.92 MIL/uL (4.5-6.0); WHITE BLOOD COUNT (AUTO) 7.5 K/uL (4.3-11.0)
--- NOTE | 2019-08-13 06:58 | NUR ---
Alert and orientated X4. ambulated to the bathroom with nurse assist, unsteady on his legs. blood sugar this am 173 coverage given. no SOB this 12 hours slept well
[2019-08-13 07:02] LABS: CALCIUM, SERUM 8.7 mg/dL (8.5-10.1); CREATININE 0.8 mg/dL (0.6-1.3); MAGNESIUM 2.4 mg/dL (1.8-2.4); POTASSIUM 4.9 mmol/L (3.5-5.1)
--- NOTE | 2019-08-13 07:52 | NUR ---
MS RN OPENING NOTE PATIENT IN BED RESTING COMFORTABLY. PATIENT IN NO ACUTE DISTRESS. NO SOB NOTED. PATIENT BREATHING IS EVEN AND UNLABORED. PATIENT STATES NO PAIN AT THIS TIME. PATIENT SAFETY PRECAUTIONS IN PLACE. BED ALARM IS ON. PATIENT EDUCATED TO USE CALL LIGHT FOR ASSISTANCE. PATIENT BED IS LOCKED AND IN LOWEST POSITION. CALL LIGHT WITHIN REACH. WILL CONTINUE TO MONITOR.
[2019-08-13 08:00] VITALS: BP 130/69
[2019-08-13] MEDS: DOCUSATE SODIUM 100 MG CAPSULE PO SCH ×2 (08:30→16:33)
[2019-08-13] MEDS: POTASSIUM CHLORIDE 20 MEQ TAB.PRT.SR PO SCH (08:30)
[2019-08-13] MEDS: FUROSEMIDE 40 MG TABLET PO SCH (08:31)
[2019-08-13] MEDS: AMLODIPINE BESYLATE 5 MG TABLET PO SCH (08:31)
[2019-08-13] MEDS: ENOXAPARIN SODIUM 40 MG/0.4 ML DISP.SYRIN SQ SCH (08:34)
[2019-08-13 08:55] LABS: ABG BASE EXCESS 8.4 mmol/L; ABG OXYGEN SATURATION 95.6 % (92.0-98.5); ABG PCO2 53.2 mmHg (35.0-45.0); ABG PO2 80.7 mmHg (75.0-100.0); AaDO2 56.2 mmHg; MetHb 0.2 % (0.0-1.5); O2Hb 94.5 % (94.0-97.0); SITE, ABG Left Radial
--- NOTE | 2019-08-13 15:30 | NUR ---
MS RN NOTE INFORMED DR. BOLAÑOS THAT BLOOD SUGAR HAS BEEN STABLE. PER DR. MAMI BURGESS TO KEEP ON BLOOD SUGAR CHECKS ACHS Q6H.
[2019-08-13 16:00] VITALS: BP 116/68
[2019-08-13] MEDS ORDERED: ALBU8.5H8 INH (17:53)
[2019-08-13] MEDS ORDERED: FURO40TA5 PO (17:53)
[2019-08-13] MEDS ORDERED: POTA20TA83 PO (17:53)
--- NOTE | 2019-08-13 18:58 | NUR ---
MS RN CLOSING NOTE PATIENT IN BED RESTING COMFORTABLY. PATIENT IN NO ACUTE DISTRESS. NO SOB NOTED. PATIENT BREATHING IS EVEN AND UNLABORED. PATIENT STATES NO PAIN AT THIS TIME. DC ORDERS PLACED, AWAITING PORTABLE OXYGEN TANK TO BE DELIVERED AFTER 1900 PER RISK AND INSURANCE MANAGER MADYSON. ONCE O2 TANK ARRIVES PATIENT IS TO BE CALLED FOR PICKUP AND OKAY TO GO HOME PER MD. PATIENT IV STILL IN PLACE. INFORMED ORDER ANALYST TO REMOVE ONCE DISCHARGED. PATIENT DC INSTRUCTIONS PROVIDED. PATIENT VERBALIZED UNDERSTANDING. PATIENT HAS BELONGINGS AT THE BEDSIDE, BELONGINGS LIST SIGNED. PATIENT KEPT CLEAN, DRY AND COMFORTABLE THROUGHOUT SHIFT. SKIN ASSESSED, NO NEW SKIN BREAKDOWN NOTED. NEEDS AND CONCERNS ADDRESSED. MD AWARE OF DISCHARGE. PATIENT SAFETY PRECAUTIONS IN PLACE. BED ALARM IS ON. PATIENT EDUCATED TO USE CALL LIGHT FOR ASSISTANCE. PATIENT BED IS LOCKED AND IN LOWEST POSITION. CALL LIGHT WITHIN REACH. WILL ENDORSE CARE TO PM SHIFT FOR DIONNE.
--- NOTE | 2019-08-13 19:22 | NUR ---
Received pt sitting on side of his bed. Alert and orientated. paper work for discharge given to him, aware he needs to go p/u his RX at the assigned [facility]. 02 tank and tubing and condenser deievered and the was orientated to the equipment . Discharge home in private car all belonginhs with the patient no SOB at this time
== END 2019-08-13 19:22 | disposition home or self-care (01) | DRG 133 ==
LOC: ER 10:17 → TELE-TD 13:01 → MED 08-09 08:58 → MEDSG2 08-12 16:31
PROVIDERS: ADMIT Hospitalist; ATTEND Student in an Organized Health Care Education/Training Program
DX: J96.01 Acute respiratory failure with hypoxia (principal); I50.31 Acute diastolic (congestive) heart failure; E87.2 Acidosis; E22.2 Syndrome of inappropriate secretion of antidiuretic hormone; I11.0 Hypertensive heart disease with heart failure; J96.02 Acute respiratory failure with hypercapnia; E11.51 Type 2 diabetes mellitus with diabetic peripheral angiopathy without gangrene; E44.1 Mild protein-calorie malnutrition; I48.91 Unspecified atrial fibrillation; J44.1 Chronic obstructive pulmonary disease with (acute) exacerbation; Z68.31 Body mass index [BMI] 31.0-31.9, adult; E88.09 Other disorders of plasma-protein metabolism, not elsewhere classified; E66.2 Morbid (severe) obesity with alveolar hypoventilation; Z87.891 Personal history of nicotine dependence
CPT/HCPCS: 36415; 36600; 71045-TC; 80048-TC; 80053-TC; 80061-TC; 81000-TC; 82550-TC; 82728-TC; 82803-TC; 82962-TC; 83540-TC; 83605-TC; 83615-TC; 83735-TC; 83880; 83935-TC; 84100-TC; 84155; 84165; 84300-TC; 84439-TC; 84443-TC; 84484-TC; 84550-TC; 85025-TC; 85378-TC; 85385-TC; 85730-TC; 86140-TC; 87040-TC; 87081-TC; 87086-TC; 93307-TC; 93970-TC; 94799-TC; 97116-TC; 97530-TC; G0378; J1120; J1650; J1815; J1940; J2930; J3475; J7050; J7060; U0003-CS